=== PATIENT | female | born 1990 | race Caucasian/White ===

== ENCOUNTER 2017-04-27 02:30 | Outpatient (CLI) | payer MEDICAID ==
[2017-04-27] MEDS ORDERED: VISTARIL PO SCH (04:02)
[2017-04-28 03:50] VITALS: BP 117/71
== END 2017-04-27 04:22 | disposition home or self-care (01) ==
LOC: TRG 02:30
PROVIDERS: ATTEND Obstetrics & Gynecology
DX: O62.9 Abnormality of forces of labor, unspecified (principal); Z3A.39 39 weeks gestation of pregnancy
CPT/HCPCS: Q0177

== ENCOUNTER 2017-04-27 17:28 | Inpatient (IN) | payer MEDICAID ==
[2017-04-27] MEDS ORDERED: TYLENOL PO ONE (21:52)
[2017-04-27 22:09] LABS: Hematocrit 31.6 % (30.3-42.9); Hemoglobin 10.4 gm/dl (10.1-14.3); Mean Corpuscular HGB Conc 33 % (30-34); Mean Corpuscular Hemoglobin 28 pg (28-32); Mean Corpuscular Volume 83 fl (79-97); Platelet Count 233 K/mm3 (140-440); Red Cell Distribution Width 15.4 % (13.2-15.2); White Blood Count 15.4 K/mm3 (4.5-11.0)
[2017-04-27] MEDS ORDERED: LACTATED RINGERS 1,000 ML ONE (22:42)
[2017-04-27] MEDS ORDERED: SUBLIMAZE IV PRN (22:57)
[2017-04-27] MEDS ORDERED: LACTATED RINGERS 1,000 ML IV SCH (23:00)
[2017-04-27] MEDS ORDERED: PITOCin/NS 30 UNIT/500ML 30 UNITS/500 ML BAG IV SCH (23:00)
[2017-04-27] MEDS ORDERED: PITOCin/NS 20 UNIT/1000ML DRIP 20 UNITS/1,000 ML BAG IV SCH (23:00)
[2017-04-27] MEDS ORDERED: SUBLIMAZE IV SCH (23:00)
--- NOTE | 2017-04-28 03:02 | History and Physical Report ---
History of Present Illness Date of examination: 04/28/17 Date of admission: 04/27/17 22:34 Chief complaint: Contractions History of present illness: 27-year-old at 39+5 weeks who presents to labor and delivery triage with a complaint of regular uterine contractions. She denies leakage of fluid or vaginal bleeding. The patient's course is significant for initiation of care at 11 weeks' estimated gestational age. Her has been uncomplicated. Her GBS status is negative. Past History Past Medical History: no pertinent history Past Surgical History: no surgical history Social history: - Obstetrical History Expected Date of Delivery: 04/30/17 Actual Gestation: 39 Week(s) 5 Day(s) : 1 Para: 0 Hx # Term Pregnancies: 0 Number of Pregnancies: 0 Spontaneous Abortions: 0 Induced : 0 Number of Living Children: 0 Medications and Allergies Allergies Allergy/AdvReac Type Severity Reaction Status Date / Time egg Allergy Swelling Verified 04/27/17 21:07 Home Medications Medication Instructions Recorded Confirmed Last Taken Type Vit-Fe Fumar-FA [ 1 tab PO QDAY 04/27/17 04/27/17 Unknown History Vitamin] Active Meds: Active Medications Fentanyl (Sublimaze) 100 mcg IV Q2H PRN PRN Reason: Labor Pain Last Admin: 04/28/17 00:38 Dose: 100 mcg Lactated Ringer's (Lactated Ringers) 1,000 mls @ 125 mls/hr IV DIRECT REGINO Last Admin: 04/27/17 23:11 Dose: 125 mls/hr Oxytocin/Sodium Chloride (Pitocin/Ns 20 Unit/1000ml Drip) 20 units in 1,000 mls @ 125 mls/hr IV DIRECT REGINO Oxytocin/Sodium Chloride (Pitocin/Ns 30 Unit/500ml) 30 units in 500 mls @ 4 mls /hr IV TITR REGINO PRN Reason: Protocol Last Titration: 04/28/17 01:45 Dose: 20 ml/hr, 20 mls/hr Review of Systems All systems: negative Genitourinary: contractions, no vaginal bleeding, no leakage of fluid - Vital Signs Vital signs: Vital Signs Pulse BP 74 130/86 04/27/17 18:05 04/27/17 18:05 Temp Pulse Resp BP Pulse Ox 99.0 F 79 18 137/80 97 04/28/17 02:25 04/28/17 02:25 04/28/17 02:25 04/28/17 02:25 04/28/17 02:25 - Physical Exam Breasts: Positive: deferred Cardiovascular: Regular rate Lungs: Positive: Clear to auscultation Abdomen: Positive: normal appearance, soft - Obstetrical FHR: category 1 Uterine Contraction Monitor Mode: External Results Result Diagrams: 04/27/17 21:15 Abnormal lab results 04/27/17 Range/Units 21:15 WBC 15.4 H (4.5-11.0) K/mm3 RDW 15.4 H (13.2-15.2) % All other labs normal. Assessment and Plan - Patient Problems (1) Active labor at term Current Visit: Yes Status: Acute Plan to address problem: Admit to labor and delivery
[2017-04-28] MEDS ORDERED: BENADRYL PO PRN (03:04)
[2017-04-28] MEDS ORDERED: PHENERGAN PO PRN (03:04)
[2017-04-28] MEDS ORDERED: NORCO 5/325 PO PRN (03:04)
[2017-04-28] MEDS ORDERED: PHENERGAN PR PRN (03:04)
[2017-04-28] MEDS ORDERED: TUCKS PAD TP PRN (03:04)
[2017-04-28] MEDS ORDERED: DULCOLAX PR PRN (03:04)
[2017-04-28] MEDS ORDERED: ZOFRAN IV PRN (03:04)
[2017-04-28] MEDS ORDERED: TYLENOL PO PRN (03:04)
[2017-04-28] MEDS ORDERED: LANSINOH TP PRN (03:04)
[2017-04-28] MEDS ORDERED: MILK OF MAGNESIA PO PRN (03:04)
--- NOTE | 2017-04-28 03:04 | Procedure Note ---
OB Delivery Note - Delivery Date of Delivery: 04/28/17 Surgeon: ROSALIO SHETTY Estimated blood loss: 300cc - Vaginal Delivery presentation: vertex Delivery position: OA Intrapartum events: none Delivery monitor: external FHT Route of delivery: Delivery placenta: spontaneous Delivery cord: 3 umbilical vessels Episiotomy: none Delivery laceration: 1st degree, other (left labial laceration) Anesthesia: none Delivery comments: The patient progressed to complete complete +2 and pushed to deliver a liveborn female with Apgars of 8 and 9. After delivery of the head the shoulders delivered easily. The cord was clamped and cut 2 and the was placed on the patient's abdomen. The placenta delivered spontaneously intact with a three -vessel cord. The patient sustained a left labial laceration. The laceration was left unrepaired. Infant weight was 7 lbs. 6 oz. Estimated blood loss was 300 mL. - A at 1 minute: 8 at 5 minutes: 9 Gender: Female (weight 7 lbs. 6 oz.)
[2017-04-28] MEDS ORDERED: SODIUM CHLORIDE FLUSH SYRINGE 10 ML IV NR (04:00)
[2017-04-28] MEDS: MOTRIN PO SCH ×2 (04:15→12:00)
[2017-04-28 15:59] LABS: Hematocrit 22.8 % (30.3-42.9); Hemoglobin 7.6 gm/dl (10.1-14.3)
[2017-04-29] MEDS: MOTRIN PO SCH ×2 (07:23→21:55)
--- NOTE | 2017-04-29 12:03 | Progress Note ---
Assessment and Plan O: VSS Af PP H/H: 7.03/29 A: Stable PP Day 1 Anemia P: Iron BId D/C home Routine orders Subjective - Subjective Date of service: 04/29/17 Patient reports: appetite normal, voiding normally, pain well controlled, flatus , ambulating normally : doing well, nursing well Objective - Vital Signs Latest vital signs: Vital Signs Temp Pulse Pulse Resp BP BP 04/29/17 08:07 98.2 F 76 18 110/80 04/28/17 23:35 98.6 F 74 18 123/69 04/28/17 17:00 97.8 F 93 H 18 119/74 Intake and Output 04/28/17 04/29/17 04/29/17 22:59 06:59 14:59 Intake Total 910 300 240 Balance 910 300 240 Intake: Oral 610 300 240 Intake, Free Water 300 Other: Total, Intake Amount 250 300 240 # Voids Void 1 # Bowel Movements 0 - Exam Breasts: Present: Lungs: Present: Normal air movement Abdomen: Present: normal appearance, soft. Absent: distention, tenderness Vulva: both: normal Uterus: Present: normal, firm, fundal height below umbilicus. Absent: bogginess , tenderness Extremities: Present: normal - Labs Labs: Abnormal lab results 04/28/17 Range/Units 15:05 Hgb 7.6 L (10.1-14.3) gm/dl Hct 22.8 L D (30.3-42.9) %
--- NOTE | 2017-04-29 12:07 | Discharge Summary ---
Providers - Providers Date of Admission: 04/27/17 22:34 Date of discharge: 05/06/17 Attending physician: KODY MCPHERSON Primary care physician: KODY MCPHERSON Hospitalization Reason for admission: active labor, IUP at term Delivery: Episiotomy: none Laceration: 1st degree Other procedures: none Discharge diagnosis: IUP at term delivered baby: female Condition at discharge: Good Disposition: DC-01 TO HOME OR SELFCARE Plan - Discharge Medications Prescriptions: Docusate Sodium [Colace] 100 mg PO BID PRN #30 capsule PRN Reason: Constipation Ferrous Sulfate [Feosol 325 MG tab] 325 mg PO BID #120 tablet Ibuprofen [Motrin 600 MG tab] 600 mg PO Q6H PRN #40 tablet PRN Reason: Pain - Provider Discharge Summary Activity: routine, no sex for 6 weeks, no heavy lifting 4 weeks, no strenuous exercise Diet: routine Additional instructions: [] Smoking cessation referral if applicable(refer to patient education folder for contact #) [] Refer to [facility]'s [facility] Booklet Call your doctor immediately for: * Fever > 100.5 * Heavy vaginal bleeding ( >1 pad per hour) * Severe persistent headache * Shortness of breath * Reddened, hot, painful area to leg or breast * Drainage or odor from incision. * Keep incision clean and dry at all times and follow doctor's instructions regarding bathing/showering - Follow up plan Follow up: KODY MCPHERSON MD [Primary Care Provider] - CHERISE WHITE CNM [Advanced Practice Nurse] - (RTO 4 weeks )
[2017-04-29 22:45] VITALS: BP 97/74
[2017-04-29] MEDS ORDERED: BOOSTRIX IM ONE (23:55)
== END 2017-04-29 22:00 | disposition home or self-care (01) | DRG 775 ==
LOC: TRG 17:28 → LD 22:34 → TRG 22:34 → OB 04-28 04:54
PROVIDERS: ADMIT Obstetrics & Gynecology; ATTEND Obstetrics & Gynecology
PROC: 10E0XZZ Delivery of Products of Conception, External Approach (ICD-10-PCS; principal; 2017-04-28)
DX: O70.0 First degree perineal laceration during delivery (principal); Z3A.39 39 weeks gestation of pregnancy; Z37.0 Single live birth; Z91.012 Allergy to eggs; O99.02 Anemia complicating childbirth
CPT/HCPCS: 36415; 85014; 85018; 85027; 86850; 86900; 86901; 99211; G0463; J2590; J3010; J7120